=== PATIENT | male | born 1990 | race African-American/Black ===

== ENCOUNTER 2017-10-07 12:03 | Emergency (ER) | payer MEDICAID, SELFPAY ==
[~2017-10-07] VITALS: Ht 188 cm; Wt 70.8 kg
[2017-10-07 12:24] VITALS: BP 127/83
[2017-10-07] MEDS ORDERED: PROPARACAINE OPHTH 0.5%, 15ML ONE (12:41)
[2017-10-07] MEDS ORDERED: FLUORESCEIN OPHTHALMIC 1 MG STRIP ONE (12:41)
[2017-10-07] MEDS ORDERED: FLUORESCEIN OPHTHALMIC 1 MG STRIP EACHEYE ONE (13:00)
[2017-10-07] MEDS ORDERED: PROPARACAINE OPHTH 0.5%, 15ML EACHEYE ONE (13:00)
== END 2017-10-07 13:09 | disposition home or self-care (01) ==
LOC: ED 13:00
DX: H00.014 Hordeolum externum left upper eyelid (principal)
CPT/HCPCS: 99283

== ENCOUNTER 2019-03-28 17:31 | Emergency (ER) | payer MEDICAID ==
[~2019-03-28] VITALS: Ht 188 cm; Wt 67.7 kg
[2019-03-28 18:13] VITALS: BP 154/80
--- NOTE | 2019-03-28 18:30 | NUR ---
PT HERE WITH C/O URINARY PAIN/TIGHTNESS. UA SENT.
[2019-03-28 18:56] LABS: CULTURE INDICATED? YES; MICROSCOPIC INDICATED
[2019-03-28] MEDS ORDERED: AZITHROMYCIN 500 MG TABLET ONE (19:24)
[2019-03-28] MEDS ORDERED: CEFTRIAXONE 250 MG ONE (19:24)
[2019-03-28] MEDS ORDERED: AZITHROMYCIN 500 MG TABLET PO ONE (19:30)
[2019-03-28] MEDS ORDERED: CEFTRIAXONE 250 MG IM ONE (19:30)
--- NOTE | 2019-03-28 19:46 | NUR ---
Patient/Caregiver given discharge instructions and they have confirmed that they understand the instructions. Patient ambulatory with steady gait.
== END 2019-03-28 19:48 | disposition home or self-care (01) ==
LOC: ED 19:42
DX: R30.0 Dysuria (principal); A64 Unspecified sexually transmitted disease; Z72.9 Problem related to lifestyle, unspecified
CPT/HCPCS: 81001; 87086; 87491; 87591; 99283